=== PATIENT | female | born 1945 | race Hispanic/Latino ===

== ENCOUNTER 2016-07-07 16:20 | Emergency (ER) | payer OTHER, MEDICARE ==
[~2016-07-07] VITALS: Ht 162.6 cm; Wt 68.0 kg
[~2016-07-07 16:20] MED LIST: ASPIRIN81 M4 PO; CHANTIX1 EACH PO; CRESTOR20 M2 PO; LISINOPRIL2.5 M1 PO; METFORMIN HCL500 M3 PO
--- NOTE | 2016-07-07 16:45 | ED CRITICAL CARE ---
History of Present Illness General Chief Complaint: Cardiopulmonary Resuscitation Stated Complaint: BIBA CPR Source: EMS Exam Limitations: clinical condition Vital Signs & Intake/Output Vital Signs & Intake/Output SEE TRIAGE NOTE Allergies Coded Allergies: No Known Allergies (02/26/16) Reconcile Medications Aspirin (Aspirin*) 81 MG TAB.CHEW 1 TAB PO DAILY HEART HEALTH (Reported) Lisinopril 2.5 MG TABLET 1 TAB PO DAILY HTN (Reported) Metformin HCl 500 MG TABLET 1 TAB PO BID DM (Reported) Rosuvastatin Calcium (Crestor) 20 MG TABLET 1 TAB PO DAILY HIGH CHOLESTEROL ( Reported) Varenicline Tartrate (Chantix) 0.5 MG (11)-1 MG (42) TAB.DS.PK 1 TAB PO DAILY SMOKING CESSATION (Reported) Triage Nurses Notes Reviewed? yes HPI: 68 year old female gisela from home for cardiac arrest. Initial call at 15:49. Family reported last seen at 3:30 with nausea and vomiting. Then found unresponsive. Instructed to lay her on the ground. Bystander CPR performed. Patient found in asystole, CPR initiated. Glucose WNL. Patient intubated, given 4 rounds epinephrine. PEA on arrival to the ED. Family reported avr and ascending aortic aneurysm repair in May at [facility]. CEA done previously. Past History Travel History Traveled to [place] past 21 day No Medical History Any Pertinent Medical History? see below for history Cardiovascular: hypertension, VALVE REPAIR Endocrine: diabetes Surgical History Surgical History: CEA AVR/ASCENDING AORTIC ANEURYSM REPAIR 05/2016 Family History Hx Contributory? No Review of Systems Review of Systems Constitutional: Reports: see HPI (unable to obtain). Physical Exam Physical Exam General Appearance: severe distress, INTUBATED Head: atraumatic Eyes: Bilateral: other (4 MM, NON REACTIVE). Neck: normal inspection Respiratory: B/L AIR ENTRY WITH BVM, RALES AT BASES Cardiovascular: NO HEART SOUNDS, HEALING STERNOTOMY WOUND Peripheral Pulses: 0 carotid (R), 0 carotid (L) Gastrointestinal: soft, non-tender Neurologic/Psych: UNRESPONSIVE Core Measures ACS in differential dx? No CVA/TIA Diagnosis: No Severe Sepsis Present: No Septic Shock Present: No Progress Differential Diagnoses I considered the following diagnoses in my evaluation of the patient: [cardiac arrest, valve rupture, PE] Plan of Care: please see acls report. b/l breath sounds with BMV on arrival. No cardiac contractility on bedside echo. 3 rounds epi, vasopression, sodium bicarb given. chris blood noted from ETT 5 minutes into resusscitation. No ROSC. Code called 16:32. Family not here in ED at that time. Manual Lathe Machinist called. Dr. Mercer informed of patient's expiration. ME contacted - no case despite recent surgery. Initial ED EKG: none Rhythm Strip: COMPLEXES AT 50 ON MONITOR WITHOUT PULSE Departure Departure Disposition: Condition: Stable Clinical Impression Primary Impression: Cardiac arrest Departure Forms: General Discharge Information Critical Care Note Critical Care Note Critical Care Time: 30-74 min (INCLUDING DOCUMENTATION/FAMILY) ED Attending Observation Initial Observation Note: I have seen and personally examined MICHAEL BAUER on 07/07/16 at 1644. I agree with the current emergency department documentation. The disposition (admission or discharge) is uncertain at this time, she needs a period of observation for the following reason(s): The ED Nurse caring for this patient has been personally informed as to what the patient is being observed for.
== END 2016-07-07 16:32 | disposition expired ==
LOC: ERH
DX: I46.9 Cardiac arrest, cause unspecified (principal)
CPT/HCPCS: 1387; 94799; 99291